=== PATIENT | female | born 1990 | race Caucasian/White ===

== ENCOUNTER → 2019-09-29 | Outpatient (CLI) | payer OTHER ==
[~2019-09-29] MED LIST: LEVO50TA PO; PANT40TA77 PO; SPIR100T4 PO; birth control
--- NOTE | 2019-09-29 23:41 | PAIN ---
DATE OF SERVICE: 09/29/2019 INITIAL CONSULTATION FOR PAIN CLINIC CHIEF COMPLAINT: Bilateral lower extremity buzzing, numbness and pain and significant fatigue. HISTORY OF PRESENT ILLNESS: The patient is a 29-year-old female who presents with history of pain since about 2007, not the result of any specific injury or action that she is aware of. Did have a groin injury in high school, which she attributes to some similar pain and sensation since that time, but the patient reports a buzzing sensation in the low back, bilateral posterior gluteus, lateral thighs, medial thighs, especially the medial inner thighs and upper thighs, anterior thighs, radiating to the knees and the lower extremities to the ankles with a "buzzing pain." It is becoming more constant and tingling in the legs, causing significant fatigue. The patient reports she has no energy to get through her working day. 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 Patient reports that it is becoming more constant, more tingling in the legs, mainly in the medial aspect of the thighs. The patient reports her disability rating from 0-10, 10 being the worst, is a 5 with family and home responsibilities, 8 with recreation, 3 with social activity, 1 with occupation, 0-6 with self-care or life support activities. The patient has had multiple negative MRI scans, x-rays of the back, EMG studies, went to [facility] for a neurological workup, which was found to be negative about 2 years ago as well and has had pain throughout this time, and has been very frustrated, as it did not help. She did have some physical therapy, which was helpful in the fall of 2018 and she is still doing physical therapy and exercise on her own. Reports the only pain, she has had, really relieved with some dry needling she had back in the fall of 2018, which helped for about 2 weeks and then the pain returned. Repeat dry needling in the medial upper thighs was not helpful, and did not decrease the pain significantly. The patient reports no loss of motor function, but significant fatigability, especially at the end of her working day. The patient has been exercising and exercises fairly intensely and has for many years for at least 1-2 hours a day at times. PAST MEDICAL HISTORY: Significant for irritable bowel syndrome, hypothyroidism. The patient has been in good health otherwise. PREVIOUS SURGERY: Include LASIK procedure in 2018, wisdom teeth extraction, had an adenoidectomy and also a muscle biopsy on the left thigh at [facility], which reportedly was negative also. CURRENT MEDICATIONS: Include levothyroxine, spironolactone, and pantoprazole. ALLERGIES: The patient has no known drug allergies. FAMILY HISTORY: Significant for thyroid disease. SOCIAL HISTORY: The patient does not smoke, drinks alcohol very rarely. Denies any illegal, illicit or recreational drugs. Single, is engaged and lives locally in [place], [place]. Works as a physical therapist. REVIEW OF SYSTEMS: The patient's review of systems is positive for those items mentioned in history of present illness. All systems reviewed and otherwise negative. It is complete, full and well documented on the patient's chart. PHYSICAL EXAMINATION: VITAL SIGNS: The patient's blood pressure is 108/74, pulse 90, respirations 18, temperature 98.6 degrees Fahrenheit, height is 5 feet 3 inches, weight is 137 pounds. GENERAL: The patient is awake, alert, oriented, appropriate, very pleasant demeanor. HEENT: Exam shows normocephalic, atraumatic. Extraocular movements are intact and symmetrical. Oral cavity shows mucous membranes moist and pink. Dentition is intact. NECK: Shows anterior throat supple without palpable lymphadenopathy noted. Swallow reflex symmetrical. CHEST: Shows normal on inspection. Breath sounds are clear to auscultation bilaterally. HEART: Shows S1, S2 clear. No murmurs auscultated. ABDOMEN: Soft, nontender, nondistended. No palpable organomegaly is noted. No rebound or guarding demonstrated. BACK: Shows spine grossly in the midline, normal-appearing cervical lordotic curvature, thoracic kyphotic curvature and lumbar lordotic curvature. Lumbar paraspinous muscle shows symmetrical, some mild tenderness with deeper palpation in the middle and lower distribution of paraspinous muscles, but only diffusely without significant radiation. The patient shows no tenderness over the spinous processes, sacrum or sacroiliac region. _She has full rotational motion of lumbar spine, both laterally as well as extension and flexion without significant difficulty or pain reported. EXTREMITIES: The patient's lower extremities show deep tendon reflexes 2+ in the patellar and tendo calcaneus tendons are 1+. Motor exam is strong with 5/5 dorsiflexion, extension, quadriceps and hamstring flexion. Peripheral pulses are 1+ posterior tibial and dorsalis pedis pulses. No peripheral edema is noted. Lower extremities are warm and dry to touch, equal in color and appearance. Straight leg raise noted to be negative for reproduction of any radicular symptoms bilaterally. Abduction and adduction of the legs are intact and strong as well. There is some mild tenderness with palpation of the upper thigh adductors, but only mildly so without specific trigger points identified bilaterally. The patient is able to stand, stand on her toes, walks with a normal-appearing gait, not using any assistive devices to ambulate. SKIN: Shows warm and dry, good turgor. No edema. No sores, rashes or bruising throughout. IMPRESSION: 1. This is a 29-year-old female with long history of pain and paresthesias in the bilateral lower extremities. 2. Consistent with obturator nerve entrapment syndrome bilaterally. 3. Irritable bowel syndrome. 4. Hypothyroidism. PLAN: Options were discussed with the patient at length today including continued physical therapies, water therapies, which I feel would be helpful, medication management as well as further diagnostic studies, which have all been negative. The patient does not have a clear radiculopathy and seems to have consistent findings of the obturator nerve entrapment bilaterally with exacerbation from significant work-related fatigue and physical exertion through personal training and workouts as well. PLAN: Options were discussed with the patient. We recommend that she decrease her intensity of exercise level at this time and allow time and rest to decrease the pain level with the obturator nerve entrapments. Also, we will try Medrol Dosepak. The patient was given instruction as well as side effects to be aware of with the medication. We briefly discussed possible continued low dose steroid therapy for a short period of time. If significantly improved, the patient will try this and followup results of the Medrol Dosepak and also significantly decrease the patient's intensity workout and frequency of workouts, also pool therapy with walking and resistance mildly in the meantime. The patient will follow up as scheduled. KOBE BURGER MD DR: LYUDMILA/syeda JOB#: [id number] / [id number] NEENA Torres DO
== END | disposition home or self-care (01) ==
LOC: PNCL 08:19
PROVIDERS: ATTEND Anesthesiology
DX: M79.662 Pain in left lower leg (principal); M79.661 Pain in right lower leg; E03.9 Hypothyroidism, unspecified; G57.83 Other specified mononeuropathies of bilateral lower limbs; K58.9 Irritable bowel syndrome, unspecified; Z82.0 Family history of epilepsy and other diseases of the nervous system; R20.2 Paresthesia of skin
CPT/HCPCS: G0463